=== PATIENT | male | born 1965 | race American Indian/Alaskan Native ===

== ENCOUNTER 2020-01-22 00:26 | Emergency (ER) | payer SELFPAY ==
[2020-01-22] MEDS ORDERED: TETRACAINE 0.5% OPHTH SOLN 4ML OU ONE (04:07)
[2020-01-22] MEDS ORDERED: FLUORESCEIN 1 MG STRIP OP ONE (04:07)
--- NOTE | 2020-01-22 04:19 | Emergency Department Report ---
ED General Adult HPI - General Chief complaint: Eye Problems Stated complaint: R EYE REDNESS/BILATERAL LEG NUMBNESS Time Seen by Provider: 01/22/20 04:00 Source: patient Mode of arrival: Ambulatory Limitations: No Limitations - History of Present Illness Initial comments: Patient is a 54-year-old male presents emergency room with complaints of a tingling sensation in his legs that occurred tonight. He states that he was asleep and then felt a jumping sensation in his bilateral legs then started to feel a tingling sensation. He denies any tingling currently but states that just woke him out of his sleep. He denies any complete numbness. He denies any weakness, gait disturbance, vision changes, speech disturbance, headache. He states that also for the last couple of days he has had right eye erythema and watery drainage. He states he feels like he has a foreign body sensation. He denies getting anything into the eye. He denies any contact lens use or issues with his vision. He has a past medical history of a heart murmur and hyperte nsion. He states he last took his blood pressure medication yesterday. He denies any allergies to medications. - Related Data Home Medications Medication Instructions Recorded Confirmed Last Taken Aspirin EC [Halfprin EC] 81 mg PO QDAY 04/17/15 04/17/15 04/16/15 Ibuprofen [Motrin 800 MG tab] 800 mg PO Q8H PRN 04/17/15 04/17/15 04/16/15 Simvastatin [Zocor TAB] 40 mg PO QHS 04/17/15 04/17/15 04/16/15 amLODIPine 10 mg PO DAILY 04/17/15 04/17/15 04/16/15 lisinopriL [Zestril TAB] 20 mg PO QDAY 04/17/15 04/17/15 04/16/15 Previous Rx's Medication Instructions Recorded Last Taken Type Neomycin/Polymyxin B/Hydrocort 1 drop OD Q3HR 7 Days #1 drops.susp 01/22/20 Unknown Rx [Fxgvxlcr-Ztdr-Ui Eye Drops] Allergies Allergy/AdvReac Type Severity Reaction Status Date / Time No Known Allergies Allergy Verified 04/17/15 07:37 ED Review of Systems ROS: Stated complaint: R EYE REDNESS/BILATERAL LEG NUMBNESS Other details as noted in HPI Comment: All other systems reviewed and negative ED Past Medical Hx - Past Medical History Previous Medical History?: Yes Hx Hypertension: Yes - Surgical History Past Surgical History?: No - Social History Smoking Status: Current Some Day Smoker - Medications Home Medications: Home Medications Medication Instructions Recorded Confirmed Last Taken Type Aspirin EC [Halfprin EC] 81 mg PO QDAY 04/17/15 04/17/15 04/16/15 History Ibuprofen [Motrin 800 MG tab] 800 mg PO Q8H PRN 04/17/15 04/17/15 04/16/15 History Simvastatin [Zocor TAB] 40 mg PO QHS 04/17/15 04/17/15 04/16/15 History amLODIPine 10 mg PO DAILY 04/17/15 04/17/15 04/16/15 History lisinopriL [Zestril TAB] 20 mg PO QDAY 04/17/15 04/17/15 04/16/15 History Neomycin/Polymyxin B/Hydrocort 1 drop OD Q3HR 7 Days #1 drops.susp 01/22/20 Unknown Rx [Veonukjo-Uvvs-Dc Eye Drops] ED Physical Exam - General Limitations: No Limitations General appearance: alert, in no apparent distress - Head Head exam: Present: atraumatic, normocephalic - Eye Eye exam: Present: PERRL, EOMI, conjunctival injection (right), other (fluoroscein stain and carpio lamp: no uptake, no foreign body). Absent: scleral icterus, nystagmus, periorbital swelling, periorbital tenderness - ENT ENT exam: Present: mucous membranes moist - Respiratory Respiratory exam: Present: normal lung sounds bilaterally. Absent: respiratory distress, wheezes, rales, rhonchi, stridor, chest wall tenderness, accessory muscle use, decreased breath sounds, prolonged expiratory - Cardiovascular Cardiovascular Exam: Present: regular rate, normal rhythm, normal heart sounds. Absent: systolic murmur, diastolic murmur, rubs, gallop - Neurological Exam Neurological exam: Present: alert, oriented X3, CN II-XII intact, normal gait, other (no focal neuro deficit). Absent: motor sensory deficit - Psychiatric Psychiatric exam: Present: normal affect, normal mood - Skin Skin exam: Present: warm, dry, intact ED Course Vital Signs 01/22/20 01/22/20 01:44 05:54 Temperature 98.2 F 98.2 F Pulse Rate 83 80 Respiratory 18 16 Rate Blood Pressure 175/98 Blood Pressure 160/95 [Right] O2 Sat by Pulse 97 98 Oximetry ED Medical Decision Making - Lab Data Result diagrams: 01/22/20 04:17 01/22/20 04:17 Lab Results 01/22/20 01/22/20 Range/Units 04:17 04:17 WBC 8.0 (4.5-11.0) K/mm3 RBC 5.28 H (3.65-5.03) M/mm3 Hgb 15.3 H (11.8-15.2) gm/dl Hct 43.5 (35.5-45.6) % MCV 83 L (84-94) fl MCH 29 (28-32) pg MCHC 35 H (32-34) % RDW 14.4 (13.2-15.2) % Plt Count 182 (140-440) K/mm3 Lymph % (Auto) 34.6 (13.4-35.0) % Clayton % (Auto) 9.0 H (0.0-7.3) % Eos % (Auto) 2.6 (0.0-4.3) % Baso % (Auto) 1.2 (0.0-1.8) % Lymph # 2.8 (1.2-5.4) K/mm3 Clayton # 0.7 (0.0-0.8) K/mm3 Eos # 0.2 (0.0-0.4) K/mm3 Baso # 0.1 (0.0-0.1) K/mm3 Seg Neutrophils % 52.6 (40.0-70.0) % Seg Neutrophils # 4.2 (1.8-7.7) K/mm3 Sodium 140 (137-145) mmol/L Potassium 4.2 (3.6-5.0) mmol/L Chloride 104.8 (98-107) mmol/L Carbon Dioxide 23 (22-30) mmol/L Anion Gap 16 mmol/L BUN 21 H (9-20) mg/dL Creatinine 1.0 (0.8-1.5) mg/dL Estimated GFR > 60 ml/min BUN/Creatinine Ratio 21 % Glucose 107 H (75-100) mg/dL Calcium 9.6 (8.4-10.2) mg/dL - Medical Decision Making Patient is a 54-year-old male presents emergency room with complaints of a tingling sensation in his legs that occurred tonight. He states that he was asleep and then felt a jumping sensation in his bilateral legs then started to feel a tingling sensation. He denies any tingling currently but states that just woke him out of his sleep. He denies any complete numbness. He denies any weakness, gait disturbance, vision changes, speech disturbance, headache. He states that also for the last couple of days he has had right eye erythema and watery drainage. He states he feels like he has a foreign body sensation. He denies getting anything into the eye. He denies any contact lens use or issues with his vision. He has a past medical history of a heart murmur and hypertension. He states he last took his blood pressure medication yesterday. He denies any allergies to medications. on exam: right conjunctival injection, fluoroscein stain and carpio lamp: no uptake, no foreign body, PERRL, EOMI. no neurological deficit on exam. Labs are stable. Given prescription for antibiotic eyedrop. Advised patient Please use medication as prescribed. Follow-up with an tree topper if symptoms are not improving. Follow-up with a primary care doctor. Return to the emergency room for any new or worsening symptoms. Critical care attestation.: If time is entered above; I have spent that time in minutes in the direct care of this critically ill patient, excluding procedure time. ED Disposition Clinical Impression: Numbness and tingling of both legs Conjunctivitis Qualifiers: Conjunctivitis type: acute Acute conjunctivitis type: unspecified Laterality: right Qualified Code(s): H10.31 - Unspecified acute conjunctivitis, right eye Disposition: DC-01 TO HOME OR SELFCARE Is pt being admited?: No Does the pt Need Aspirin: No Condition: Stable Instructions: Conjunctivitis (ED), Paresthesia (ED) Additional Instructions: Please use medication as prescribed. Follow-up with an tree topper if symptoms are not improving. Follow-up with a primary care doctor. Return to the emergency room for any new or worsening symptoms. Prescriptions: Neomycin/Polymyxin B/Hydrocort [Acjdzabt-Nblx-Fd Eye Drops] 1 drop OD Q3HR 7 Days #1 drops.susp Referrals: HALLIE ALVARADO MD [Staff Physician] - 3-[address] [facility] [Provider Group] - 3-5 Days LAURA MEZA MD [Staff Physician] - 3-5 Days [facility] [place] [Outside] - 3-5 Days [facility] [Provider Group] - 3-5 Days Time of Disposition: 05:23 Print Language: MACEDONIAN
[2020-01-22 04:36] LABS: Basophils # (Auto) 0.1 K/mm3 (0.0-0.1); Basophils % (Auto) 1.2 % (0.0-1.8); Eosinophils # (Auto) 0.2 K/mm3 (0.0-0.4); Eosinophils % (Auto) 2.6 % (0.0-4.3); Hematocrit 43.5 % (35.5-45.6); Hemoglobin 15.3 gm/dl (11.8-15.2); Lymphocytes # (Auto) 2.8 K/mm3 (1.2-5.4); Lymphocytes % (Auto) 34.6 % (13.4-35.0); Mean Corpuscular HGB Conc 35 % (32-34); Mean Corpuscular Volume 83 fl (84-94); Monocytes # (Auto) 0.7 K/mm3 (0.0-0.8); Red Blood Count 5.28 M/mm3 (3.65-5.03); Red Cell Distribution Width 14.4 % (13.2-15.2)
[2020-01-22 04:44] LABS: Platelet Count 182 K/mm3 (140-440)
[2020-01-22 04:51] LABS: BUN/Creatinine Ratio 21; Blood Urea Nitrogen 21 mg/dL (9-20); Calcium 9.6 mg/dL (8.4-10.2); Hemolysis Index 26
[2020-01-22 06:45] VITALS: BP 160/95
== END 2020-01-22 05:56 | disposition home or self-care (01) ==
LOC: ED 00:26
DX: R20.0 Anesthesia of skin (principal); H10.89 Other conjunctivitis; I10 Essential (primary) hypertension; F17.200 Nicotine dependence, unspecified, uncomplicated; Z79.82 Long term (current) use of aspirin; Z79.899 Other long term (current) drug therapy
CPT/HCPCS: 36415; 80048; 85025; 99283

== ENCOUNTER 2020-08-20 16:49 | Emergency (ER) | payer SELFPAY ==
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
[2020-08-20 21:14] VITALS: BP 187/122
== END 2020-08-20 22:27 | disposition home or self-care (01) ==
LOC: ED 16:49
DX: S01.21XA Laceration without foreign body of nose, initial encounter (principal); X58.XXXA Exposure to other specified factors, initial encounter; Y93.89 Activity, other specified; Y92.89 Other specified places as the place of occurrence of the external cause; Y99.8 Other external cause status
CPT/HCPCS: 70486